=== PATIENT | female | born 1945 | race Caucasian/White ===

== ENCOUNTER 2017-06-10 09:46 | Day surgery (SDC) | payer MEDICARE, OTHER ==
[2017-06-06 11:20] VITALS: BMI 29.0
[~2017-06-10 09:46] MED LIST: LIDOCAINE 1% 20 ML VIAL (10MG/ML) FOR IV START INTRADERMA PRN
[2017-06-10 11:19] VITALS: RESP 16; TEMP 99.2
[2017-06-10] MEDS ORDERED: PROPOFOL 10 MG/ML 20 ML VIAL IV ONE (12:21)
[2017-06-10] MEDS: LACTATED RINGERS 1,000 ML IV SCH ×2 (12:21→12:24)
[2017-06-10 13:31] VITALS: BP 103/65; PULSE 79
--- NOTE | 2017-06-10 21:20 | P.PCN ---
Date of Procedure: 06/10/17 Procedure(s) Performed: Procedure: 1. Esophagogastroduodenoscopy and biopsy. 2. Colonoscopy and biopsy. Preoperative diagnosis: Dysphagia and change in bowel habits. Postoperative diagnosis: 1. Hiatal hernia and LA grade B/C distal esophagitis with a short benign nonobstructing stricture at the level of the GE junction. 2. Mild gastritis and duodenitis. 3. Benign stricture at the post bulbar area not allowing advancement of the endoscope into the descending duodenum. 4. Colon exam within normal limits. 5. Biopsies obtained from the antrum, esophagus and right colon. Preparation: HalfLytely prep. Sedation: Was provided by anesthesia. Brief clinical history: The patient is a 71-year-old female who was scheduled for this evaluation because of epigastric pain and dysphagia as well as change in bowel habits. This evaluation is to assess for complete complicated reflux disease or other pathology and to rule out colonic pathology. Procedure: With the patient on her left lateral decubitus position and after informed consent and adequate sedation, I passed the Olympus-GIF 160 video upper endoscope through the cricopharyngeus down the esophagus. The esophagus showed a short benign nonobstructing stricture at the level of the GE junction which was around 40 cm from the incisors. The esophagus showed LA grade B/C distal esophagitis. There was no Cochran's esophagus. There was a small sliding hiatal hernia then the endoscope was advanced to the rest of the stomach which was insufflated with air and inspected in detail including the retroflex view in the cardia. There was some mottling and erythema in the antrum but no ulcers or erosions. Pyloric channel did not show any ulcers. Duodenal bulb showed mottling and erythema and there was a benign appearing stricture in the post bulbar area that did not allow the advancement of the endoscope into the descending duodenum. Because of her symptoms, I obtained biopsies from the antrum and esophagus then the endoscope was withdrawn and I proceeded to do colonoscopy. Perianal area did not show any fissures or fistulas. There were no masses felt on digital rectal examination. The Olympus CFQ 160L video colonoscope was used and was inserted in the rectum in the usual fashion and advanced without difficulty to the cecum. The mucosa appeared healthy. No polyps or tumors were seen. I retroflexed the endoscope in the rectum before the endoscope was withdrawn and I obtained biopsies from the right colon to rule out microscopic colitis. The patient tolerated the procedure well. Plan: The patient was reassured. I gave her a prescription for PPI and instructed her about antireflux diet and measures. I will see her in follow-up in the office in around 4-6 weeks and I anticipate repeating her upper endoscopy to assess the healing of her esophagitis and to consider dilating her duodenal stricture if she manifests any symptoms to suggest some gastric outlet obstruction.
== END 2017-06-10 13:40 | disposition home or self-care (01) ==
LOC: ORWHC2ENDO 09:46
DX: R19.4 Change in bowel habit (principal); K29.50 Unspecified chronic gastritis without bleeding; K21.0 Gastro-esophageal reflux disease with esophagitis; K44.9 Diaphragmatic hernia without obstruction or gangrene; K20.0 Eosinophilic esophagitis; K29.80 Duodenitis without bleeding; I10 Essential (primary) hypertension; Z85.42 Personal history of malignant neoplasm of other parts of uterus; Z79.899 Other long term (current) drug therapy; Z88.2 Allergy status to sulfonamides; Z88.8 Allergy status to other drugs, medicaments and biological substances
CPT/HCPCS: 88305; 88342; 45380; 43239; J2704; 45378

== ENCOUNTER → 2017-08-12 | Outpatient (CLI) | payer MEDICARE, OTHER ==
--- NOTE | 2017-08-12 17:37 | WWHP ---
[facility] - HISTORY AND PHYSICAL CHIEF COMPLAINT: The patient is here for routine gynecologic exam and for evaluation of possible rectocele. HPI: This is a 72-year-old, G5, P4-0-1-4 with an LMP of 2007. She is status post AMIE/BSO for endometrial carcinoma in 2007. She states it is been about 4 years since her last pelvic exam. She states she has had some difficulty moving her bowels during the past 2 years. She feels like there is an internal bulge that does that does not allow her to move her bowels unless she pushes on the inner aspect of her buttocks. She feels that pushing on the right inner buttock will push the bulge to the left side and she will then have to push on the left inner buttock for her bowels to move. She had a colonoscopy and EGD done by Dr. Valentine earlier this year which was apparently unremarkable. She is otherwise without complaints. PAST MEDICAL HISTORY: Endometrial cancer 2007 and she is status post AMIE/BSO, but did not require radiation. She did take some type of oral chemotherapy at that time. She also has history of chronic hypertension, gastroesophageal reflux disease, ulcerative colitis, which is now asymptomatic. MEDICATIONS: Lisinopril 5 mg daily, Protonix 40 mg daily. ALLERGIES: SULFA and VIOXX. PAST SURGICAL HISTORY: AMIE/BSO in 2007. Multiple breast biopsies in 1979. Colonoscopy and EGD 2016. PAST OB HISTORY: 4 vaginal deliveries and 1 spontaneous . PAST [employer] HISTORY: She is status post AMIE/BSO for endometrial cancer in 2007. She has no history of STDs. SOCIAL HISTORY: She denies tobacco, alcohol, and drug use. 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 FAMILY HISTORY: Mother had colon cancer. Sister had throat cancer. Brother had brain and lung cancer. Daughter has type 2 diabetes. REVIEW OF SYSTEMS: She has lost about 8-10 pounds since earlier this year. She denies respiratory or cardiac problems. GI: She has had some problems with moving her bowels as in the HPI. She has also had some difficulty swallowing and this is being evaluated by Dr. Valentine and she may need to have esophageal dilation performed according to the patient. PHYSICAL EXAM: Blood pressure 118/65, height 5 feet 1 inch, weight 155 pounds, temperature 96.6, pulse 89, BMI 29. This is a well-developed, well-nourished, white female, who is alert and oriented x3, in no acute distress. HEENT: Within normal limits. NECK: Supple without mass or thyromegaly. CHEST AND LUNGS: Clear to auscultation. HEART: Regular rate and rhythm. Breasts are without mass or discharge. Axillary exam is negative for adenopathy. BACK: Negative for CVA tenderness. ABDOMEN: Soft, nontender, without palpable masses. PELVIC EXAM: External genitalia reveals mild to moderate atrophy without lesions. Vagina reveals [id number] atrophy without lesions. There is a grade 1 cystocele at rest and this increases to a grade 2 to 2-1/2 with Valsalva. There is a grade 2 rectocele. The vaginal cuff is well-supported. There is a minimal enterocele with Valsalva. No urinary leakage was demonstrated with Valsalva. Bimanual exam is negative for mass or tenderness. Rectovaginal exam confirms a small rectocele. The rectum is fairly wide. There are no rectal masses or tenderness. This is negative for occult blood. EXTREMITIES: Nontender. IMPRESSION: 1. 72-year-old menopausal female, status post AMIE/BSO for endometrial cancer. 2. Grade 2-3 cystocele and grade 2 rectocele with minimal enterocele. 3. Some difficulty with bowel movements that requires rectal manipulation with pushing on the inner buttock areas. 4. At this time, I do not feel that surgical correction of the rectocele or cystocele will be significantly beneficial for her difficulties with bowel movements. PLAN: 1. Pap smear of the vaginal cuff was performed because of her history of endometrial cancer. 2. Self breast examination was discussed. 3. Mammogram will be done today. 4. We have had a long discussion regarding her cystocele and rectocele. I have given her several suggestions including negative Valsalva exercises as well as increasing flexion at the hips, such as a squatting type position. We discussed different ways of doing this including using stools at the base of the toilet. We have also discussed the importance of keeping the stool soft with adequate fiber and not holding her urine or stools longer than necessary. 5. ACOG handout on pelvic support problems was given to the patient. 6. If she is having any increasing problems with this, we can re-evaluate as well as consider referral for surgical correction if increasing bulging is noted. 7. She will return in 1 year and p.r.n. MMODL / IJN: [id number] /
--- NOTE | 2017-08-21 07:09 | MM ---
Reason for exam: screening (asymptomatic). Last mammogram was performed 6 years and 7 months ago. History: Patient is postmenopausal and has history of endometrial cancer at age 63. Benign excisional biopsy of both breasts, 1979. Physical Findings: A clinical breast exam by your physician is recommended on an annual basis and results should be correlated with mammographic findings. MG 3D Screening Mammo W/Cad Bilateral CC and MLO view(s) were taken. Prior study comparison: January 15, 2011, mammogram, performed at [facility]. October 25, 2009, mammogram, performed at [facility]. There are scattered fibroglandular densities. Finding: There are typically benign round calcifications in both breasts. There is no discrete abnormality. ASSESSMENT: Negative, BI-RAD 1 RECOMMENDATION: Routine screening mammogram of both breasts in 1 year.
== END | disposition home or self-care (01) ==
LOC: WWCWWP 13:15
PROVIDERS: ATTEND Obstetrics & Gynecology
DX: Z12.31 Encounter for screening mammogram for malignant neoplasm of breast (principal)
CPT/HCPCS: 77063; G0202

== ENCOUNTER → 2018-01-26 | Outpatient (CLI) | payer MEDICARE, OTHER ==
[2018-01-26 15:36] LABS: Blood Urea Nitrogen 14 mg/dL (7-17)
--- NOTE | 2018-01-27 08:29 | CT ---
EXAMINATION TYPE: CT abdomen pelvis w con DATE OF EXAM: 01/26/2018 COMPARISON: NONE HISTORY: Per patient unable to have unforced bowel movements CT DLP: 898.8 mGycm CONTRAST: CT scan of the abdomen and pelvis is performed with Oral Contrast and with IV Contrast, patient injec neal with 100 mL of Isovue 300. FINDINGS: LUNG BASES-: No visible nodule. No infiltrate. LIVER/GB: No calcified gallstones. No space occupying hepatic lesion. Biliary tree is of normal ca liber. There is mild hepatic steatosis. PANCREAS: No inflammation. No distinct mass. SPLEEN: No splenic enlargement. No lesion seen. ADRENALS: No nodule. No thickening. KIDNEYS/BLADDER: No hydronephrosis. No nephrolithiasis. No distinct renal mass. Urinary bladder g rossly unremarkable. BOWEL: Normal appendix. Normal bowel caliber. No inflammation. Small sliding-type hiatal hernia simeon ntified. GENITAL ORGANS: No gross abnormality. LYMPH NODES: No greater than 1cm abdominal or pelvic lymph nodes are appreciated. AORTA: No significant abnormality. OSSEOUS STRUCTURES: Degenerative changes lumbar spine.. OTHER: No significant additional abnormality is seen. IMPRESSION: 1. Mild hepatic steatosis. 2. Small sliding-type hiatal hernia. 3. No visible obstructing lesion. Symptoms persist consider direct visualization.
== END | disposition home or self-care (01) ==
LOC: RADCTMAIN 15:07
DX: K76.0 Fatty (change of) liver, not elsewhere classified (principal); K44.9 Diaphragmatic hernia without obstruction or gangrene
CPT/HCPCS: 82565; 84520; 74177; 36415; Q9967